=== PATIENT | female | born 1960 | race Caucasian/White ===

== ENCOUNTER 2018-02-11 08:33 | Inpatient (IN) | payer OTHER ==
[2018-02-11] MEDS: CEFAZOLIN 2 GM/50 ML (PMX) 50 ML (FOR WT < 120 KG) IVPB (07:00)
[~2018-02-11 08:33] MED LIST: LACTATED RINGER'S 1,000 ML IV; SOD CHLORIDE 0.9% 1,000 ML IV
[2018-02-11] MEDS ORDERED: MIDAZOLAM 1 MG/ML 2 ML INJ (11:54)
[2018-02-11] MEDS ORDERED: SODIUM CL BACTERIOSTATIC 30 ML INJ (12:01)
[2018-02-11] MEDS ORDERED: HEPARIN 1000 UNITS/ML 10 ML INJ (12:02)
[2018-02-11] MEDS ORDERED: ROPIVACAINE 0.5 % 30 ML VIAL (12:19)
[2018-02-11] MEDS ORDERED: METOCLOPRAMIDE 10 MG INJ (12:19)
[2018-02-11] MEDS ORDERED: ONDANSETRON 4 MG INJ (12:19)
[2018-02-11] MEDS ORDERED: ROCURONIUM 50 MG INJ ×2 (13:11→13:27)
[2018-02-11] MEDS ORDERED: FENTAnyl 50 MCG/ML VIAL (13:11)
[2018-02-11] MEDS ORDERED: CEFAZOLIN 1 GM INJ (13:11)
[2018-02-11] MEDS ORDERED: PROPOFOL 20 ML (13:11)
[2018-02-11] MEDS ORDERED: HYDROmorphONE 2 MG/ML SYG (13:15)
[2018-02-11] MEDS: BUPIVACAINE 0.25%/EPI (SDV) 10 ML INJ (14:19)
[2018-02-11] MEDS: CEFAZOLIN 1 GM INJ ×2 (14:23→15:43)
[2018-02-11] MEDS: THROMBIN 5000 UNIT VIAL ×2 (14:24→15:42)
[2018-02-11] MEDS: HEMOSTATIC MATRIX SYG ZFS ×2 (14:24→15:41)
[2018-02-11] MEDS: GELATIN SIZE 100 SPONGE (14:24)
[2018-02-11] MEDS ORDERED: EPHEDrine SULFATE 50 MG/5 ML SYG (17:05)
[2018-02-11] MEDS ORDERED: THROMBIN 5000 UNIT VIAL (18:18)
[2018-02-11] MEDS ORDERED: BUPIVACAINE 0.25%/EPI (MDV) 50 ML VIAL INJ (18:56)
[2018-02-11] MEDS ORDERED: NACL 0.9% 3 ML SYG IV (19:00)
[2018-02-11] MEDS ORDERED: NALOXONE (0.4 MG/ML) INJ IV (19:00)
[2018-02-11] MEDS: POLYMYXIN/BACITRACIN 1L IRRIG (19:01)
[2018-02-11] MEDS ORDERED: DIPHENHYDRAMINE 50 MG INJ IV (20:30)
[2018-02-11] MEDS ORDERED: ONDANSETRON 4 MG INJ IV (20:30)
[2018-02-11] MEDS ORDERED: MEPERIDINE 25 MG INJ IV (20:30)
[2018-02-11] MEDS ORDERED: HYDROmorphONE 1 MG/5 ML IV SYRINGE IV ×3 (20:30)
[2018-02-11] MEDS: ALBUTEROL 0.083% (NEB) 2.5 MG/3 ML AMP HHN (21:00)
[2018-02-11] MEDS: HYDROmorphONE 0.2 MG/ML PCA IV (21:23)
[2018-02-11] MEDS: ONDANSETRON 4 MG INJ IV (21:46)
[2018-02-11] MEDS: DEXTROSE 5%-0.45% NACL 1,000 ML IV (22:51)
[2018-02-12] MEDS: DEXTROSE 5%-0.45% NACL 1,000 ML IV (04:25)
[2018-02-12] MEDS: ONDANSETRON 4 MG INJ IV ×2 (04:48→12:02)
[2018-02-12 05:14] LABS: HEMATOCRIT 33.3 % (37.0-47.0); HEMOGLOBIN 11.2 g/dl (12.0-16.0)
[2018-02-12 05:43] LABS: ANION GAP 11 (5-13); BLOOD UREA NITROGEN 11 mg/dl (7-20); CALCIUM 8.7 mg/dl (8.4-10.2); CARBON DIOXIDE 23 mmol/L (21-31); CHLORIDE 106 mmol/L (97-110); Estimated GFR > 60 mL/min (>60); GLUCOSE 224 mg/dl (70-220); POTASSIUM 4.1 mmol/L (3.5-5.1); SODIUM 140 mmol/L (135-144)
[2018-02-12] MEDS: CEFAZOLIN 1 GM/50 ML (PMX) 50 ML IVPB ×4 (05:48→17:42)
[2018-02-12] MEDS: ACCU-CHEK XX ×5 (08:57→19:55)
[2018-02-12] MEDS: GABAPENTIN 300 MG CAP PO ×2 (09:02→20:54)
[2018-02-12] MEDS: DOCUSATE SODIUM 100 MG CAP PO ×2 (09:02→20:54)
[2018-02-12] MEDS: POTASSIUM CHLORIDE 20 MEQ in LACTATED RINGER'S 1,000 ML IV (12:01)
[2018-02-12] MEDS: morphine 1 MG/ML 30 ML (PCA) IV (12:11)
[2018-02-13] MEDS: POTASSIUM CHLORIDE 20 MEQ in LACTATED RINGER'S 1,000 ML IV (05:00)
[2018-02-13 05:09] LABS: ADD MAN DIFF? NO
[2018-02-13 05:20] LABS: BASOPHILS % 0.2 % (0.0-2.0); HEMATOCRIT 28.2 % (37.0-47.0); HEMOGLOBIN 9.5 g/dl (12.0-16.0); LYMPHOCYTES # 1.6 10^3/ul (0.8-2.9); LYMPHOCYTES % 11.7 % (15.0-51.0); MEAN CORPUSCULAR HEMOGLOBIN 30.9 pg (29.0-33.0); MEAN CORPUSCULAR HGB CONC 33.7 g/dl (32.0-37.0); MEAN CORPUSCULAR VOLUME 91.9 fl (82.0-101.0); MEAN PLATELET VOLUME 10.1 fl (7.4-10.4); MONOCYTE # 0.8 10^3/ul (0.3-0.9); NEUTROPHIL # 10.8 10^3/ul (1.6-7.5); NEUTROPHILS % 81.6 % (39.0-77.0); PLATELET COUNT 138 10^3/UL (140-415); RED BLOOD COUNT 3.07 10^6/ul (4.20-5.40); RED CELL DISTRIBUTION WIDTH 12.1 % (11.5-14.5)
[2018-02-13 05:20] LABS: WHITE BLOOD COUNT 13.2 10^3/ul (4.8-10.8)
[2018-02-13 05:37] LABS: ANION GAP 6 (5-13); BLOOD UREA NITROGEN 10 mg/dl (7-20); CALCIUM 8.6 mg/dl (8.4-10.2); CARBON DIOXIDE 27 mmol/L (21-31); CHLORIDE 103 mmol/L (97-110); CREATININE 0.76 mg/dl (0.44-1.00); Estimated GFR > 60 mL/min (>60); GLUCOSE 114 mg/dl (70-220); POTASSIUM 3.9 mmol/L (3.5-5.1); SODIUM 136 mmol/L (135-144)
[2018-02-13] MEDS: morphine 1 MG/ML 30 ML (PCA) IV (07:10)
[2018-02-13] MEDS: ACCU-CHEK XX ×4 (08:48→13:40)
[2018-02-13] MEDS: DOCUSATE SODIUM 100 MG CAP PO ×2 (09:39→20:57)
[2018-02-13] MEDS: GABAPENTIN 300 MG CAP PO ×2 (09:39→20:57)
[2018-02-13] MEDS: BETHANECHOL 25 MG TAB PO (09:39)
[2018-02-13] MEDS: oxyCODONE 5 MG TAB PO ×5 (09:39→20:59)
[2018-02-13 09:58] LABS: ADD UMIC YES; UR ASCORBIC ACID NEGATIVE (NEGATIVE); UR BILIRUBIN (Dip) NEGATIVE (NEGATIVE); UR BLOOD (Dip) 2+ mg/dL (NEGATIVE); UR CLARITY CLEAR (CLEAR); UR COLOR YELLOW (YELLOW); UR GLUCOSE (Dip) NEGATIVE (NEGATIVE); UR KETONES (Dip) 2+ mg/dL (NEGATIVE); UR LEUKOCYTE ESTERASE (Dip) NEGATIVE Leu/ul (NEGATIVE); UR MUCUS FEW /HPF (NONE SEEN); UR NITRITE (Dip) NEGATIVE (NEGATIVE); UR RBC 12 /HPF (0-5); UR SPECIFIC GRAVITY (Dip) 1.019 (1.003-1.030); UR TOTAL PROTEIN (Dip) 1+ mg/dl (NEGATIVE); UR UROBILINOGEN (Dip) NEGATIVE (NEGATIVE); UR WBC 2 /HPF (0-5)
[2018-02-13] MEDS ORDERED: oxyCODONE 15 MG TAB PO (10:30)
[2018-02-13] MEDS ORDERED: MAGNESIUM HYDROXIDE 311 MG TAB PO (17:30)
[2018-02-13] MEDS: LACTULOSE 30ML CUP PO (18:18)
[2018-02-13] MEDS: MAGNESIUM HYDROXIDE 30ML CUP PO (18:18)
[2018-02-14] MEDS: oxyCODONE 5 MG TAB PO ×3 (07:33→18:27)
[2018-02-14] MEDS: GABAPENTIN 300 MG CAP PO ×2 (09:39→20:50)
[2018-02-14] MEDS: DOCUSATE SODIUM 100 MG CAP PO ×2 (09:39→20:50)
[2018-02-15] MEDS: oxyCODONE 5 MG TAB PO ×3 (01:31→14:30)
[2018-02-15] MEDS: DOCUSATE SODIUM 100 MG CAP PO (09:43)
[2018-02-15] MEDS: GABAPENTIN 300 MG CAP PO (09:43)
[2018-02-15] MEDS: ONDANSETRON 4 MG INJ IV (12:55)
[2019-02-11] MEDS ORDERED: SEVOFLURANE 15 MIN (07:00)
== END 2018-02-15 16:53 | disposition home or self-care (01) | DRG 460 ==
LOC: REC 08:33 → MS1 22:29
PROC: 01NB0ZZ Release Lumbar Nerve, Open Approach (ICD-10-PCS; 2018-02-11 11:00)
PROC: 0SG30A0 Fusion of Lumbosacral Joint with Interbody Fusion Device, Anterior Approach, Anterior Column, Open Approach (ICD-10-PCS; principal; 2018-02-11 12:24)
PROC: 0SB40ZZ Excision of Lumbosacral Disc, Open Approach (ICD-10-PCS; 2018-02-11 12:24)
PROC: 06QD0ZZ Repair Left Common Iliac Vein, Open Approach (ICD-10-PCS; 2018-02-11 12:24)
DX: M51.17 Intervertebral disc disorders with radiculopathy, lumbosacral region (principal); I97.52 Accidental puncture and laceration of a circulatory system organ or structure during other procedure; M51.16 Intervertebral disc disorders with radiculopathy, lumbar region; M41.86 Other forms of scoliosis, lumbar region; M48.061 Spinal stenosis, lumbar region without neurogenic claudication; I10 Essential (primary) hypertension; E66.9 Obesity, unspecified; Z68.30 Body mass index [BMI] 30.0-30.9, adult; J45.30 Mild persistent asthma, uncomplicated; Y81.8 Miscellaneous general- and plastic-surgery devices associated with adverse incidents, not elsewhere classified; Y92.234 Operating room of hospital as the place of occurrence of the external cause
CPT/HCPCS: 72100; 80048; 81001; 82962; 85014; 85018; 85025; 86850; 86900; 86901; 86920; 88304; 94664; 97116; 97161; 97530